=== PATIENT | female | born 1990 | race Caucasian/White ===

== ENCOUNTER 2019-03-21 15:34 | Emergency (ER) | payer MEDICAID, OTHER ==
[~2019-03-21] VITALS: Ht 172.7 cm; Wt 70.0 kg
[2019-03-21 18:43] VITALS: BP 104/77
== END 2019-03-21 18:45 | disposition home or self-care (01) ==
LOC: ER 15:34
DX: R00.2 Palpitations (principal); I47.1 Supraventricular tachycardia
CPT/HCPCS: 82948; 93005; 99284

== ENCOUNTER 2019-10-04 14:03 | Emergency (ER) | payer MEDICAID, OTHER ==
[~2019-10-04] VITALS: Ht 172.7 cm; Wt 58.5 kg
--- NOTE | 2019-10-04 14:37 | NUR ---
pt is being evaluated by Carmen LINDSEY
--- NOTE | 2019-10-04 15:02 | NUR ---
xray at bedside
--- NOTE | 2019-10-04 15:52 | NUR ---
development technical lead at bedside
[2019-10-04 16:44] VITALS: BP 117/78
== END 2019-10-04 16:46 | disposition home or self-care (01) ==
LOC: ER 14:04
DX: M79.671 Pain in right foot (principal); R22.41 Localized swelling, mass and lump, right lower limb
CPT/HCPCS: 73610; 73630; 93971; 99284

== ENCOUNTER 2020-08-01 17:31 | Emergency (ER) | payer OTHER ==
[~2020-08-01] VITALS: Ht 172.7 cm; Wt 68.2 kg
[2020-08-01 18:12] LABS: BASOPHILS % (AUTO) 0.4 % (0-1); EOSINOPHILS # (AUTO) 0.1 X10'3 (0-0.9); EOSINOPHILS % (AUTO) 0.9 % (0-6); HEMOGLOBIN 14.3 g/dl (12.0-16.0); LYMPHOCYTES # (AUTO) 1.5 X10'3 (1.1-4.8); LYMPHOCYTES % (AUTO) 20.9 % (21-51); MEAN CORPUSCULAR HEMOGLOBIN 30.8 PG (27.0-31.0); MEAN CORPUSCULAR HGB CONC 33.2 g/dL (33.0-36.5); MEAN CORPUSCULAR VOLUME 92.7 FL (78-98); MEAN PLATELET VOLUME 8.2 FL (7.4-10.4); MONOCYTES # (AUTO) 0.6 X10'3 (0-0.9); MONOCYTES % (AUTO) 8.2 % (2-12); NEUTROPHILS # (AUTO) 4.9 X10'3 (1.8-7.7); NEUTROPHILS % (AUTO) 69.6 % (42-75); PLATELET COUNT 250 X10'3 (140-440); RED BLOOD COUNT 4.65 X10'6 (4.20-5.60); RED CELL DISTRIBUTION WIDTH 13.3 % (11.5-14.5)
[2020-08-01 18:26] LABS: ALANINE AMINOTRANSFERASE 20 U/L (12-78); ALBUMIN 4.1 G/DL (3.4-5.0); ALBUMIN/GLOBULIN RATIO 1.1 (1.1-1.5); ALKALINE PHOSPHATASE 60 IU/L (46-116); ANION GAP 9 (8-16); ASPARTATE AMINO TRANSFERASE 19 U/L (10-37); BILIRUBIN,TOTAL 0.7 MG/DL (0.1-1.0); BLOOD UREA NITROGEN 24 MG/DL (7-18); BUN/CREATININE RATIO 25.3 (6.6-38.0); CALCIUM 8.9 MG/DL (8.5-10.1); CHLORIDE 105 MMOL/L (99-107); CREATININE 0.95 MG/DL (0.40-0.90); GLUCOSE 86 MG/DL (70-104); POTASSIUM 3.9 MMOL/L (3.5-5.1); SODIUM 141 MMOL/L (135-145); TOTAL CARBON DIOXIDE 26.7 MMOL/L (24-32); TOTAL PROTEIN 7.8 G/DL (6.4-8.2); eGFR 69 ML/MIN
[2020-08-01 20:13] VITALS: BP 124/76
--- NOTE | 2020-08-01 20:13 | NUR ---
Dr Boateng wants patient to have CT stat no HCG results
[2020-08-01 20:16] LABS: URINE HCG NEGATIVE (NEG)
[2020-08-01 20:24] LABS: CLARITY,URINE CLEAR (Clear); COLOR,URINE YELLOW (Yellow); GLUCOSE, URINE NEGATIVE (Neg); KETONES,URINE NEGATIVE (Neg); LEUKOCYTE ESTERASE ,URINE TRACE (Neg); NITRITES, URINE NEGATIVE (Neg); OCCULT BLOOD,URINE MODERATE (Neg); PROTEIN,URINE NEGATIVE (Neg); UROBILINOGEN,URINE 0.2 E.U/dL (0.2-1.0)
[2020-08-01 20:33] LABS: UA COLLECTION TYPE VOIDED
[2020-08-01 20:34] LABS: BACTERIA,URINE 1+ /HPF (Neg); RBC,URINE 0-2 /HPF (0-2); SQUAMOUS EPITHELIAL CELL,UR FEW /LPF (FEW); WBC,URINE 0-4 /HPF (0-4)
== END 2020-08-01 21:16 | disposition home or self-care (01) ==
LOC: ER 17:31
DX: K62.5 Hemorrhage of anus and rectum (principal); R19.7 Diarrhea, unspecified
CPT/HCPCS: 36415; 74176; 80053; 81001; 81025; 85025; 87088; 99284

== ENCOUNTER 2022-02-28 10:01 | Emergency (ER) | payer BC ==
[~2022-02-28] VITALS: Ht 172.7 cm; Wt 72.0 kg
[2022-02-28 11:20] LABS: CLARITY,URINE CLEAR (Clear); COLOR,URINE YELLOW (Yellow); GLUCOSE, URINE NEGATIVE (Neg); KETONES,URINE NEGATIVE (Neg); LEUKOCYTE ESTERASE ,URINE NEGATIVE (Neg); NITRITES, URINE NEGATIVE (Neg); OCCULT BLOOD,URINE NEGATIVE (Neg); PROTEIN,URINE NEGATIVE (Neg); UROBILINOGEN,URINE 0.2 E.U/dL (0.2-1.0)
[2022-02-28 11:21] LABS: UA COLLECTION TYPE NON-SPECIFIED; URINE HCG NEGATIVE (NEG)
[2022-02-28 11:28] LABS: BASOPHILS % (AUTO) 0.7 % (0-1); EOSINOPHILS # (AUTO) 0.1 X10'3 (0-0.9); EOSINOPHILS % (AUTO) 1.1 % (0-6); HEMATOCRIT 41.8 % (35.0-45.0); HEMOGLOBIN 14.3 g/dl (12.0-16.0); LYMPHOCYTES # (AUTO) 1.3 X10'3 (1.1-4.8); LYMPHOCYTES % (AUTO) 23.4 % (21-51); MEAN CORPUSCULAR HEMOGLOBIN 31.1 PG (27.0-31.0); MEAN CORPUSCULAR HGB CONC 34.1 g/dL (33.0-36.5); MEAN CORPUSCULAR VOLUME 91.1 FL (78-98); MONOCYTES # (AUTO) 0.5 X10'3 (0-0.9); MONOCYTES % (AUTO) 9.6 % (2-12); NEUTROPHILS # (AUTO) 3.6 X10'3 (1.8-7.7); NEUTROPHILS % (AUTO) 65.2 % (42-75); PLATELET COUNT 265 X10'3 (140-440); RED BLOOD COUNT 4.59 X10'6 (4.20-5.60); WHITE BLOOD COUNT 5.5 X10'3 (4.5-11.0)
[2022-02-28 11:33] LABS: ALANINE AMINOTRANSFERASE 24 U/L (12-78); ALBUMIN 4.1 G/DL (3.4-5.0); ALBUMIN/GLOBULIN RATIO 1.1 (1.1-1.5); ALKALINE PHOSPHATASE 72 IU/L (46-116); ANION GAP 7 (8-16); ASPARTATE AMINO TRANSFERASE 21 U/L (10-37); BILIRUBIN,TOTAL 0.5 MG/DL (0.1-1.0); BLOOD UREA NITROGEN 12 MG/DL (7-18); BUN/CREATININE RATIO 11.9 (6.6-38.0); CALCIUM 8.4 MG/DL (8.5-10.1); CHLORIDE 107 MMOL/L (99-107); CREATININE 1.01 MG/DL (0.40-0.90); GLUCOSE 87 MG/DL (70-104); LIPASE 127 U/L (73-393); POTASSIUM 3.8 MMOL/L (3.5-5.1); SODIUM 141 MMOL/L (135-145); TOTAL CARBON DIOXIDE 27.5 MMOL/L (24-32); TOTAL PROTEIN 7.7 G/DL (6.4-8.2); eGFR 64 ML/MIN
[2022-02-28 12:00] VITALS: BP 120/78
== END 2022-02-28 12:03 | disposition home or self-care (01) ==
LOC: ER 10:01
DX: K62.5 Hemorrhage of anus and rectum (principal); R11.2 Nausea with vomiting, unspecified; I51.9 Heart disease, unspecified
CPT/HCPCS: 36415; 80053; 81003; 81025; 83690; 85025; 99283

== ENCOUNTER 2022-04-15 18:52 | Emergency (ER) | payer BC, MEDICAID ==
[~2022-04-15] VITALS: Ht 172.7 cm; Wt 80.0 kg
[2022-04-15 23:19] LABS: BASOPHILS % (AUTO) 0.8 % (0-1); EOSINOPHILS # (AUTO) 0.1 X10'3 (0-0.9); EOSINOPHILS % (AUTO) 1.4 % (0-6); HEMATOCRIT 40.6 % (35.0-45.0); HEMOGLOBIN 13.9 g/dl (12.0-16.0); LYMPHOCYTES # (AUTO) 2.1 X10'3 (1.1-4.8); LYMPHOCYTES % (AUTO) 34.2 % (21-51); MEAN CORPUSCULAR HEMOGLOBIN 30.7 PG (27.0-31.0); MEAN CORPUSCULAR HGB CONC 34.2 g/dL (33.0-36.5); MEAN CORPUSCULAR VOLUME 89.6 FL (78-98); MEAN PLATELET VOLUME 7.8 FL (7.4-10.4); MONOCYTES # (AUTO) 0.5 X10'3 (0-0.9); NEUTROPHILS # (AUTO) 3.3 X10'3 (1.8-7.7); NEUTROPHILS % (AUTO) 54.6 % (42-75); PLATELET COUNT 234 X10'3 (140-440); RED BLOOD COUNT 4.53 X10'6 (4.20-5.60); RED CELL DISTRIBUTION WIDTH 13.3 % (11.5-14.5); WHITE BLOOD COUNT 6.1 X10'3 (4.5-11.0)
[2022-04-15 23:33] LABS: ALANINE AMINOTRANSFERASE 17 U/L (12-78); ALBUMIN 3.9 G/DL (3.4-5.0); ALBUMIN/GLOBULIN RATIO 1.1 (1.1-1.5); ALKALINE PHOSPHATASE 68 IU/L (46-116); ANION GAP 9 (8-16); ASPARTATE AMINO TRANSFERASE 15 U/L (10-37); BILIRUBIN,TOTAL 0.4 MG/DL (0.1-1.0); BLOOD UREA NITROGEN 11 MG/DL (7-18); BUN/CREATININE RATIO 13.9 (6.6-38.0); CALCIUM 9.2 MG/DL (8.5-10.1); CHLORIDE 106 MMOL/L (99-107); CREATININE 0.79 MG/DL (0.40-0.90); GLUCOSE 89 MG/DL (70-104); POTASSIUM 3.8 MMOL/L (3.5-5.1); SODIUM 140 MMOL/L (135-145); TOTAL CARBON DIOXIDE 25.2 MMOL/L (24-32); TOTAL PROTEIN 7.4 G/DL (6.4-8.2); eGFR 85 ML/MIN
[2022-04-16 00:40] VITALS: BP 145/88
== END 2022-04-16 00:42 | disposition home or self-care (01) ==
LOC: ER 18:53
DX: K92.1 Melena (principal); R19.7 Diarrhea, unspecified; Z79.899 Other long term (current) drug therapy
CPT/HCPCS: 36415; 80053; 85025; 99283

== ENCOUNTER 2022-06-18 19:48 | Emergency (ER) | payer BC, MEDICAID ==
[~2022-06-18] VITALS: Ht 172.7 cm; Wt 73.6 kg
[2022-06-18 20:05] VITALS: BP 121/81
[2022-06-18] MEDS ORDERED: DOXYCYCLINE 100MG CAPSULE PO STA (21:31)
[2022-06-18] MEDS ORDERED: DOXY100C77 PO (21:33)
[2022-06-18] MEDS ORDERED: DOXYCYCLINE 100MG CAPSULE ONE (22:06)
== END 2022-06-18 22:12 | disposition home or self-care (01) ==
LOC: ER 19:48
DX: L73.8 Other specified follicular disorders (principal); L98.499 Non-pressure chronic ulcer of skin of other sites with unspecified severity; Z79.899 Other long term (current) drug therapy
CPT/HCPCS: 99283

== ENCOUNTER 2023-10-31 11:34 | Emergency (ER) | payer BC, MEDICAID, OTHER ==
[~2023-10-31] VITALS: Ht 172.7 cm; Wt 71.4 kg
[2023-10-31 11:42] VITALS: TEMP 98.8
[2023-10-31 12:19] LABS: LYMPHOCYTES # (AUTO) 1.1 X10'3 (1.1-4.8); MONOCYTES # (AUTO) 0.4 X10'3 (0-0.9); WHITE BLOOD COUNT 5.1 X10'3 (4.5-11.0)
[2023-10-31 12:21] LABS: BASOPHILS % (AUTO) 0.6 % (0-1); EOSINOPHILS # (AUTO) 0.1 X10'3 (0-0.9); HEMATOCRIT 41.4 % (35.0-45.0); HEMOGLOBIN 13.8 g/dl (12.0-16.0); LYMPHOCYTES % (AUTO) 20.7 % (21-51); MEAN CORPUSCULAR HEMOGLOBIN 30.5 PG (27.0-31.0); MEAN CORPUSCULAR HGB CONC 33.2 g/dL (33.0-36.5); MEAN CORPUSCULAR VOLUME 91.8 FL (78-98); MEAN PLATELET VOLUME 8.6 FL (7.4-10.4); NEUTROPHILS # (AUTO) 3.6 X10'3 (1.8-7.7); NEUTROPHILS % (AUTO) 69.7 % (42-75); PLATELET COUNT 225 X10'3 (140-440); RED BLOOD COUNT 4.51 X10'6 (4.20-5.60); RED CELL DISTRIBUTION WIDTH 13.4 % (11.5-14.5)
[2023-10-31 12:32] LABS: ALANINE AMINOTRANSFERASE 24 U/L (12-78); ALBUMIN 3.6 G/DL (3.4-5.0); ALBUMIN/GLOBULIN RATIO 1.1 (1.1-1.5); ALKALINE PHOSPHATASE 62 IU/L (46-116); ANION GAP 9 (8-16); ASPARTATE AMINO TRANSFERASE 17 U/L (10-37); BILIRUBIN,DIRECT 0.1 MG/DL (0-0.3); BILIRUBIN,TOTAL 0.5 MG/DL (0.1-1.0); BLOOD UREA NITROGEN 9 MG/DL (7-18); BUN/CREATININE RATIO 10.2 (10.0-20.0); CHLORIDE 108 MMOL/L (99-107); CREATININE 0.88 MG/DL (0.40-0.90); GLUCOSE 85 MG/DL (70-104); LIPASE 40 U/L (16-77); POTASSIUM 3.8 MMOL/L (3.5-5.1); SODIUM 141 MMOL/L (135-145); TOTAL CARBON DIOXIDE 23.8 MMOL/L (24-32); eCRCL 92 ML/MIN; eGFR 74 ML/MIN
[2023-10-31] MEDS ORDERED: ONDA-243 PO (12:37)
[2023-10-31] MEDS ORDERED: OMEP40CA21 PO (12:37)
[2023-10-31 12:39] VITALS: BP 109/74; PULSE 91; RESP 15; O2SAT 99
== END 2023-10-31 13:13 | disposition home or self-care (01) ==
LOC: ER 11:36
DX: K52.9 Noninfective gastroenteritis and colitis, unspecified (principal); Z79.899 Other long term (current) drug therapy
CPT/HCPCS: 80048; 80076; 83690; 85025; 99283

== ENCOUNTER 2024-07-06 21:01 | Emergency (ER) | payer SELFPAY ==
[~2024-07-06] VITALS: Ht 172.7 cm; Wt 71.6 kg
[~2024-07-06 21:01] MED LIST: ONDA-243 PO
[2024-07-06 22:19] LABS: BASOPHILS # (AUTO) 0.1 X10'3 (0-0.2); BASOPHILS % (AUTO) 0.5 % (0-1); EOSINOPHILS % (AUTO) 0.2 % (0-6); HEMATOCRIT 42.2 % (35.0-45.0); HEMOGLOBIN 14.7 g/dl (12.0-16.0); LYMPHOCYTES % (AUTO) 8.3 % (21-51); MEAN CORPUSCULAR HEMOGLOBIN 30.9 PG (27.0-31.0); MEAN CORPUSCULAR HGB CONC 34.9 g/dL (33.0-36.5); MEAN CORPUSCULAR VOLUME 88.5 FL (78-98); MEAN PLATELET VOLUME 7.9 FL (7.4-10.4); MONOCYTES # (AUTO) 0.7 X10'3 (0-0.9); MONOCYTES % (AUTO) 5.6 % (2-12); NEUTROPHILS # (AUTO) 10.4 X10'3 (1.8-7.7); NEUTROPHILS % (AUTO) 85.4 % (42-75); PLATELET COUNT 278 X10'3 (140-440); RED BLOOD COUNT 4.76 X10'6 (4.20-5.60); RED CELL DISTRIBUTION WIDTH 13.4 % (11.5-14.5); WHITE BLOOD COUNT 12.1 X10'3 (4.5-11.0)
[2024-07-06 22:31] LABS: ALANINE AMINOTRANSFERASE 18 U/L (12-78); ALBUMIN/GLOBULIN RATIO 1.3 (1.1-1.5); ALKALINE PHOSPHATASE 75 IU/L (46-116); ANION GAP 9 (8-16); ASPARTATE AMINO TRANSFERASE 11 U/L (10-37); BILIRUBIN,TOTAL 0.7 MG/DL (0.1-1.0); BLOOD UREA NITROGEN 9 MG/DL (7-18); BUN/CREATININE RATIO 8.8 (10.0-20.0); CALCIUM 8.8 MG/DL (8.5-10.1); CHLORIDE 105 MMOL/L (99-107); CREATININE 1.02 MG/DL (0.40-0.90); GLUCOSE 100 MG/DL (70-104); LIPASE 28 U/L (16-77); SODIUM 141 MMOL/L (135-145); TOTAL CARBON DIOXIDE 27.4 MMOL/L (24-32); TOTAL PROTEIN 7.2 G/DL (6.4-8.2); eCRCL 78 ML/MIN; eGFR 62 ML/MIN
--- NOTE | 2024-07-06 23:37 | Physician Documentation ---
History of Present Illness ~ Chief Complaint: Abdominal Pain Stated Complaint: RIGHT SIDE ABDOMEN PAIN Time Seen by MD: 23:35 [facility] of Ar[facility]: POV HPI Patient presents to the emergency room for evaluation of right lower quadrant pain onset this evening. No fevers. Positive nausea but feels better after vomiting. No prior instances. She still has her appendix. History of ulcerative colitis Medication Reconciliation Allergies: Coded Allergies: No Known Allergies (Unverified , 10/31/23) Scheduled PRN ONDANSETRON ODT 4mg tablet (Ondansetron Odt), 1 TAB PO Q6H PRN PRN for nausea/vomiting Past Medical History Past Medical History: Arrhythmia, Bustits Past Surgical History: noncontributory Alcohol Use: None Drug Use: none Lives In: Home Review of Systems ROS All review of systems negative except as per HPI Physical Exam Vital Signs: Temperature: 98.4, Source: Temporal, Heart Rate: 77, Respiratory Rate: 12, BP: 115/79, Pulse Oximetry: 99, Weight: 71.600 Oxygen Flow Rate: 0 Physical Exam General: Patient is awake, alert, oriented x4 in no acute distress and well appearing.~ Head: Normocephalic and atraumatic. Eyes: Conjunctival normal. EOMI. PERRL. ENT: Mucous membranes moist. Neck: Supple, trachea is midline. Chest: Clear to auscultation bilaterally without rales, rhonchi, or wheezes. There is no accessory muscle use or retractions. Cardiac: RRR without murmurs, gallops, or rubs. Abd: Soft, nondistended, positive tenderness to right lower quadrant without peritonitis Progress Results/Orders Results/Orders Orders - OSWALDO SANTOYO MD Ct Abdomen Pelvis (07/06/24 23:41) Cult Urine + [place] Ct (07/07/24 00:32) Completed Orders - OSWALDO SANTOYO MD Hcg, Ur Ql (07/06/24 22:04) Cbc/Diff (07/06/24 22:04) BMP (07/06/24 22:04) Lipase (07/06/24 22:04) CMP (07/06/24 22:04) Ct Abdomen Pelvis (07/06/24 23:41) Ua W/Microscopic, Cult If Ind (07/06/24 23:30) Ceftriaxone Im Kit W/Lidocaine (Rocephin (07/07/24 01:00) Vital Signs 07/06/24 07/06/24 07/06/24 07/07/24 21:59 22:43 22:43 00:37 Temp 98.4 Pulse 88 77 68 Resp 16 12 12 16 B/P (MAP) 110/67 115/79 (91) 115/79 (91) Pulse Ox 99 99 98 O2 Flow Rate 0 0 07/07/24 02:07 Pulse 74 Resp 10 B/P (MAP) 115/79 (91) Pulse Ox 99 Laboratory Tests Test 07/06/24 22:10 07/06/24 23:30 White Blood Count 12.1 H Red Blood Count 4.76 Hemoglobin 14.7 Hematocrit 42.2 Mean Corpuscular Volume 88.5 Mean Corpuscular Hemoglobin 30.9 Mean Corpuscular Hemoglobin Concent 34.9 Red Cell Distribution Width 13.4 Platelet Count 278 Mean Platelet Volume 7.9 Neutrophils (%) (Auto) 85.4 H Lymphocytes (%) (Auto) 8.3 L Monocytes (%) (Auto) 5.6 Eosinophils (%) (Auto) 0.2 Basophils (%) (Auto) 0.5 Neutrophils # (Auto) 10.4 H Lymphocytes # (Auto) 1.0 L Monocytes # (Auto) 0.7 Eosinophils # (Auto) 0.0 Basophils # (Auto) 0.1 CBC Comment Sodium Level 141 Potassium Level 4.0 Chloride Level 105 Carbon Dioxide Level 27.4 Anion Gap 9 Blood Urea Nitrogen 9 Creatinine 1.02 H Estimated GFR/1.73 m2 62 BUN/Creatinine Ratio 8.8 L Glucose Level 100 Calcium Level 8.8 Total Bilirubin 0.7 Aspartate Amino Transf (AST/SGOT) 11 Alanine Aminotransferase (ALT/SGPT) 18 Alkaline Phosphatase 75 Total Protein 7.2 Albumin 4.0 Globulin 3.2 Albumin/Globulin Ratio 1.3 Lipase 28 Chemistry Comments Urine Specimen Description Cln catch midstream Urine Color Yellow Urine Clarity Slightly cloudy Urine pH 6.5 Urine Specific [place] 1.010 Urine Protein 30 H Urine Glucose (UA) Negative Urine Ketones 15 H Urine Occult Blood Small Urine Nitrite Negative Urine Bilirubin Negative Urine Urobilinogen 0.2 Urine Leukocyte Esterase Large H Urine RBC 3-10 Urine WBC 50-100 H Urine WBC Clumps Few Urine Squamous Epithelial Cells Few Urine Bacteria 1+ Urine Mucus Moderate Urine Culture Indicated Indicated Volume Urine Centrifuged 10 ml Urine HCG, Qualitative Negative Urine Comment Microbiology Date/Time Source Procedure Growth Status 07/07/24 00:32 Urine Clean Catch Midstream Urine Culture - Preliminary Culture received. Resulted Medical Decision Making Findings Patient presents to the emergency room with abdominal pain as per HPI. Differentials include but are not limited to appendicitis diverticulitis pancreatitis cholecystitis constipation small-bowel obstruction therefore emergent labs and imaging ordered. CT scan is positive for constipation and we will treat her as such. Labs reassuring. Patient was responding to treatment. Noted urinary tract infection. Departure Disposition: HOME / SELF CARE / HOMELESS Impression: Primary Impression: Constipation Additional Impression: Urinary tract infection Condition: Stable Discharge Instructions: Constipation, Adult, Urinary Tract Infection, Adult Referrals: NO PRIMARY CARE PROVIDER (PCP) Prescriptions Cephalexin*Monohydrate* (Keflex*) 500 Mg Capsule 1 CAP PO Q12H for 10 Days, #20 CAP Prov: OSWALDO SANTOYO MD 07/07/24 Bisacodyl (Dulcolax) 5 Mg Tablet.dr 4 TAB PO ONCE for constipation for 1 Day, #4 TAB 0 Refills Prov: OSWALDO SANTOYO MD 07/07/24 Education Educated: Patient Educated regarding: diagnosis, treatment, need for follow up Signature Scribe Signature: No scribe Attestation: The note accurately reflects work and decisions made by me.Oswaldo Santoyo MD 07/07/24 02:38 OSWALDO SANTOYO MD July 06, 2024 23:37
[2024-07-06 23:57] LABS: BILIRUBIN,URINE NEGATIVE (Neg); CLARITY,URINE SLIGHTLY CLOUDY (Clear); COLOR,URINE YELLOW (Yellow); GLUCOSE, URINE NEGATIVE (Neg); KETONES,URINE 15 mg/dl (Neg); LEUKOCYTE ESTERASE ,URINE LARGE (Neg); NITRITES, URINE NEGATIVE (Neg); OCCULT BLOOD,URINE SMALL (Neg); PH,URINE 6.5 (4.8-8.0); PROTEIN,URINE 30 mg/dl (Neg); UA COLLECTION TYPE CLN CATCH MIDSTREAM; UROBILINOGEN,URINE 0.2 E.U/dL (0.2-1.0)
[2024-07-06 23:59] LABS: URINE HCG NEGATIVE (NEG)
[2024-07-07 00:30] LABS: WBC,URINE 50-100 /HPF (0-4)
[2024-07-07 00:31] LABS: BACTERIA,URINE 1+ /HPF (Neg); MUCUS STRANDS MODERATE /LPF (Neg); SQUAMOUS EPITHELIAL CELL,UR FEW /LPF (FEW)
[2024-07-07 00:32] LABS: WBC CLUMPS,URINE FEW /HPF (NEGATIVE)
[2024-07-07] MEDS ORDERED: CefTRIAXone 1000mg IM Kit (w/lidocaine diluent) IM ONE (01:00)
--- NOTE | 2024-07-07 02:24 | RADIOLOGY REPORT ---
Clinical History Right lower quadrant pain Comparison None Technique: All CT scans at this medical facility are performed using dose modulation techniques as appropriate t o a performed exam including the following: Automated exposure control was utilized; adjustment of th e mA and/or kV according to patient size; and use of iterative reconstruction technique. All CT studies are reported to the Dose Index Registry of the [employer]. Without Contrast Radiation Dose: CTDI (mGy): 12.69; DLP (mGy-cm): 593.54 SURAJ WRIGHT, [id number] FINDINGS: LUNG BASES: Unremarkable LIVER: Unremarkable GALLBLADDER: Unremarkable PANCREAS: Unremarkable SPLEEN: Unremarkable ADRENAL GLANDS: Unremarkable KIDNEYS: 1-2 mm nonobstructive right renal stone on series 2 image 37. AORTA: Unremarkable INFERIOR VENA CAVA: Unremarkable LYMPH NODES: Unremarkable STOMACH: Unremarkable SMALL INTESTINE: Unremarkable APPENDIX: Normal caliber appendix COLON: Abundant stool in the ascending colon BLADDER: Unremarkable RECTUM: Unremarkable SKELETAL: Unremarkable SUPERFICIAL SOFT TISSUES: Unremarkable OTHER: No other acute findings. IMPRESSION: Mild proximal colonic constipation. Normal caliber appendix. 1-2 mm nonobstructive right renal stone. This report was electronically signed by Avery Morris MD on 07/07/2024 2:21:34 AM.
[2024-07-07] MEDS ORDERED: BISA-78 PO (02:38)
[2024-07-07] MEDS ORDERED: CEPH-585 PO (02:38)
[2024-07-07] MEDS: cephalexin 250mg capsule PO ONE (02:48)
[2024-07-07] MEDS: bisacodyl 5mg tablet.DR PO ONE (02:49)
[2024-07-07 02:53] VITALS: BP 115/70; PULSE 58; RESP 10; TEMP 98; O2SAT 99
== END 2024-07-07 02:58 | disposition home or self-care (01) ==
LOC: ER 21:01
DX: N39.0 Urinary tract infection, site not specified (principal); K59.00 Constipation, unspecified
CPT/HCPCS: 36415; 74176; 80053; 81001; 81025; 83690; 85025; 87077; 87088; 87186; 99285